=== PATIENT | female | born 1995 | race Two or more races ===

== ENCOUNTER 2020-06-03 10:27 | Inpatient (IN) | payer OTHER ==
[~2020-06-03] VITALS: Ht 160 cm; Wt 91.6 kg
== END 2020-06-05 13:36 | disposition home or self-care (01) | DRG 807 ==
LOC: OB/GYN 10:27 → LDR 10:27 → OB/GYN 06-04 18:38
PROVIDERS: ADMIT Obstetrics & Gynecology; ATTEND Obstetrics & Gynecology
PROC: 10E0XZZ Delivery of Products of Conception, External Approach (ICD-10-PCS; principal; 2020-06-03)
PROC: 10907ZC Drainage of Amniotic Fluid, Therapeutic from Products of Conception, Via Natural or Artificial Opening (ICD-10-PCS; 2020-06-03)
PROC: 4A1HXFZ Monitoring of Products of Conception, Cardiac Rhythm, External Approach (ICD-10-PCS; 2020-06-03)
PROC: 3E033VJ Introduction of Other Hormone into Peripheral Vein, Percutaneous Approach (ICD-10-PCS; 2020-06-03)
DX: O80 Encounter for full-term uncomplicated delivery (principal); Z37.0 Single live birth; Z3A.39 39 weeks gestation of pregnancy; Z20.828 Contact with and (suspected) exposure to other viral communicable diseases